=== PATIENT | female | born 1975 | race Caucasian/White ===

== ENCOUNTER 2016-03-19 08:56 | Emergency (ER) ==
[2016-03-19 09:08] VITALS: BP 118/73; TEMP 98.6; BMI 27.0
[2016-03-19] MEDS ORDERED: NORCO 10-325 PO STA (09:28)
[2016-03-19 10:15] LABS: BILIRUBIN,URINE Negative (NEGATIVE); KETONES,URINE Negative (NEGATIVE); LEUKOCYTE ESTERASE ,URINE Trace (NEGATIVE); NITRITE,URINE Negative (NEGATIVE); PROTEIN,URINE Negative (NEGATIVE); URINE, BLOOD Negative (NEGATIVE)
--- NOTE | 2016-03-19 10:15 | ED.PDOC ---
General ED Provider: Dr. TOR MINA Chief Complaint: Back Pain Stated Complaint: low back pain Time Seen by Physician: 09:00 (no history of back pain negative trauma ) Mode of Arrival: Walk-In Information Source: Patient Exam Limitations: No limitations Primary Care Provider: RADHA DIMAS Nursing and Triage Documentation Reviewed and Agree: Yes Musculoskeletal Complaint Exam - Back Pain Complaint/Exam Mechanism of Injury: Reports: No known trauma Onset/Duration: 1 day Symptoms Are: Still present Timing: Constant Episodes Lasting: Hours Initial Severity: Moderate Current Severity: Moderate Character: Reports: Throbbing, Spasmodic, Stiffness Aggravating: Reports: Movements, Lifting Alleviating: Reports: Rest, Position Associated Signs and Symptoms: Reports: Flank pain. Denies: Swelling, Redness, Bruising, Fever, Weakness, Numbness, Tingling, Abdominal pain, Bladder incontinence, Bowel incontinence, Weight loss, Pain with weight bearing TAD Risk Factors: Reports: None AAA Risk Factors: Reports: None Cauda Equina Risk Factors: Reports: None Epidural Abcess Risk Factors: Reports: None Related Surgical History: Reports: None Focal Tenderness: No Paraspinal Muscle Tenderness: No Paraspinal Muscle Spasm: No Scoliosis: No Lordosis: No Kyphosis: No SLR Test: Right Negative, Left Negative Hip Motion Testing Pain: Right Negative, Left Negative Focal Weakness: Present: None Focal Sensory Loss: Present: None Gait: Present: Normal Differential Diagnoses: Renal Colic, Strain, Sprain Review of Systems - Review Of Systems Constitutional: Reports: No symptoms Eyes: Reports: No symptoms Ears, Nose, Mouth, Throat: Reports: No symptoms Respiratory: Reports: No symptoms Cardiac: Reports: No symptoms GI: Reports: No symptoms : Reports: Dysuria Musculoskeletal: Reports: Back pain Skin: Reports: No symptoms Neurological: Reports: No symptoms Endocrine: Reports: No symptoms Hematologic/Lymphatic: Reports: No symptoms All Other Systems: Reviewed and Negative Past Medical History - Past Medical History Previously Healthy: Yes Endocrine: Reports: None Cardiovascular: Reports: None Respiratory: Reports: None Hematological: Reports: None Gastrointestinal: Reports: None Genitourinary: Reports: None Neuro/Psych: Reports: None Musculoskeletal: Reports: None Cancer: Reports: None Last Menstrual Period: 3 weeks - Surgical History General Surgical History: Reports: None - Family History Family History: Reports: None - Social History Smoking Status: Current every day smoker, Light tobacco smoker Hx Substance Use: No Alcohol Screening: None Physical Exam - Physical Exam Appearance: Well-appearing, No pain distress, Well-nourished Eyes: ESTELITA, EOMI, Conjunctiva clear ENT: Ears normal, Nose normal, Oropharynx normal Respiratory: Airway patent, Breath sounds clear, Breath sounds equal, Respirations nonlabored Cardiovascular: RRR, Pulses normal, No rub, No murmur GI/: Soft, Nontender, No masses, Bowel sounds normal, No Organomegaly Musculoskeletal: Normal strength, ROM intact, No edema, No calf tenderness Skin: Warm, Dry, Normal color Neurological: Sensation intact, Motor intact, Reflexes intact, Cranial nerves intact, Alert, Oriented Psychiatric: Affect appropriate, Mood appropriate Interpretation - Radiology Interpretation Radiology Interpretation By: Radiologist Radiology Results: No acute changes Critical Care Note - Critical Care Note Total Time (mins): 0 Course - Course Orders, Labs, Meds: Lab Review 03/19/16 09:31 Urine Color Yellow Urine Clarity Clear Urine pH 7.0 Ur Specific Vida 1.015 Urine Protein Negative Urine Glucose (UA) Negative Urine Ketones Negative Urine Blood Negative Urine Nitrite Negative Urine Bilirubin Negative Urine Urobilinogen 0.2 Ur Leukocyte Esterase Trace Urine Microscopic RBC 0-2 Urine Microscopic WBC 2-5 Ur Squamous Epith Cells 2-5 Urine Bacteria 1+ Orders Category Date Time Status URINALYSIS C & S IF INDICATED Stat LAB 03/19/16 09:31 Completed URINE CULTURE Stat LAB 03/19/16 10:16 Received Hydrocodone Bit/Acetaminophen [[place] 10-325] MEDS 03/19/16 09:28 Discontinued 1 tab PO ONCE STA CT ABD/PEL WO RENAL STONE PROT Stat RADS 03/19/16 09:[address] LUMBAR SPINE W/O CONTRAST Stat RADS 03/19/16 09:28 Taken Medications Discontinued Medications Generic Name Dose Route Start Last Admin Trade Name Freq PRN Reason Stop Dose Admin Acetaminophen/Hydrocodone Bitart 1 tab 03/19/16 09:28 03/19/16 09:46 [place] 10-325 PO 03/19/16 09:29 1 tab ONCE STA Administration Vital Signs: Temp Pulse Resp BP Pulse Ox 03/19/16 08:57 98.6 F 72 18 118/73 98 Departure - Departure Time of Disposition: 11:00 (DISCUSSED UA RESULTS WILL NOT TREAT AT THIS TIME PT AWARE OF INSTRUCTION) Disposition: HOME SELF-CARE Discharge Problem: Backache Instructions: Acute Low Back Pain (ED), Urinary Tract Infection in Women (ED) Condition: Good Pt referred to PMD for follow-up: No Additional Instructions: Please call your Family Physician as soon as possible to schedule a follow-up appointment. Prescriptions: Hydrocodone/Acetaminophen [[place] 5-325 Tablet] 1 each PO Q6HR PRN #7 tablet PRN Reason: PAIN Allergies/Adverse Reactions: Allergies No Known Allergies Allergy (Unverified 03/19/16 09:08) Home Medications: Ambulatory Orders Citalopram Hydrobromide [Celexa] 20 mg PO BEDTIME 03/19/16 Hydrocodone/Acetaminophen [[place] 5-325 Tablet] 1 each PO Q6HR PRN #7 tablet 11/23
[2016-03-19 10:17] LABS: ADD URINE MICROSCOPIC YES; BACTERIA,URINE 1+ (NOT PRESENT)
--- NOTE | 2016-03-19 10:43 | CT ---
EXAM: CT lumbar spine without contrast. HISTORY: Back pain. COMPARISON: None available. TECHNIQUE: Multiple axial images of the lumbar spine were obtained without intravenous contrast. I mages were reformatted in the sagittal and coronal planes. FINDINGS: The normal curvature and alignment are maintained save for mild left convex curvature lauryn tered near L2-3. There is partial sacralization of L5 on the right with small ribs present at T12. Vertebral body and intervertebral disc heights are normal. No fracture or subluxation is seen. No significant central canal stenosis identified. Adjacent soft tissues are unremarkable. IMPRESSION: No acute abnormality of the lumbar spine.
--- NOTE | 2016-03-19 10:44 | CT ---
EXAM: CT abdomen pelvis without contrast HISTORY: Bilateral flank pain and lower back pain for 3 days. No history of injury COMPARISON: CT lumbar spine same day and CT abdomen pelvis 11/05/2009 TECHNIQUE: Serial axial images of the abdomen pelvis were performed from the lung bases through the inferior pelvis without contrast. These were viewed in multiple planes. FINDINGS: The lung bases are clear. Evaluation of the liver and the intra-abdominal organs is limited due to lack of contrast. The live r is unremarkable. The gallbladder is normal. The adrenal glands are unremarkable. The spleen is normal. Pancreas is normal. The kidneys are unremarkable with no visualized stone, hydronephrosis or hydroureter. The stomach is unremarkable. The small bowel in the abdomen and pelvis is normal. There is a fat-containing umbilical hernia. T he appendix is normal. The colon is unremarkable. The uterus and ovaries are unremarkable. Urinar y bladder is normal. There is no free air, free fluid or lymphadenopathy. The osseous structures a re unremarkable. There is no acute compression fracture or subluxation. IMPRESSION: No acute intra-abdominal or pelvic process to account for patient's symptoms. No hydronephrosis, hydroureter or stone is identified.
== END 2016-03-19 11:03 | disposition home or self-care (01) ==
LOC: ED 08:56
DX: M54.5 Low back pain (principal); N39.0 Urinary tract infection, site not specified; F17.210 Nicotine dependence, cigarettes, uncomplicated
CPT/HCPCS: 74176; 81001; 87086; 99283

== ENCOUNTER 2017-08-18 12:07 | Outpatient (CLI) | payer OTHER ==
--- NOTE | 2017-08-18 14:31 | MRI ---
EXAM: MRI cervical spine without IV contrast. DATE: 08/18/2017. HISTORY: Neck pain. TECHNIQUE: Sagittal and axial T1W and T2W sequences of the cervical spine along with sagittal IR and coronal T2W sequences were obtained using 1.2 Tika magnet. No IV contrast. COMPARISON: MRI C-spine 08/13/2013. FINDINGS: Minor rightward curvature of the cervical spine is present vs patient's head canted to the left. No acute c-spine fracture, subluxation, osseous malignancy, or jumped facet is apparent. Min or anterior wedge appearance of the C5 and C6 vertebral bodies appear chronic. Minor C4-5, mild C5-6 , and minor C6-7 disc space narrowing is detected. Bone marrow signal is overall normal. Cervical sp inal cord is mildly flattened anteriorly at C5-6 and C6-7. No syrinx, cord edema, myelomalacia, or n eoplasm is identified. Visible brainstem is normal. There is no Chiari 1 malformation. Pituitary gland is somewhat small i n size, with CSF filling part the pituitary fossa. No mastoid disease detected. No thyroid, submand ibular, or parotid gland neoplasm is apparent. Trachea, larynx, epiglottis are unremarkable. No rony picious neck mass, cervical lymphadenopathy, apical lung mass, pneumonia, or pleural effusion is demo nstrated. Several artifacts are visible at the left lung apex on the coronal sequence. Segmental analysis: C2-3: Normal. C3-4: Normal. C4-5: Minimal posterior disc bulge (1 mm AP) does not contact the cord. Canal is 11.7 mm AP. Each foramen is patent. C5-6: Broad posterior disc/osteophyte complex (2.6 mm AP) flattens the cord anteriorly. Canal is 9. 1 mm AP. Minor right and mild left foraminal stenoses are due to uncinate hypertrophy. C6-7: Broad posterior disc/osteophyte complex (2.7 mm AP) flattens the cord anteriorly. Canal is 7. 8 mm AP. Minor left foraminal narrowing is due to uncinate hypertrophy. C7-T1: Normal. T1-2: Normal. IMPRESSIONS: 1. C-spine mild uncinate hypertrophy and DDD - - similar to August 2013. 2. Mild central stenosis at C5-6. Moderate central stenosis at C6-7. 3. Moderate/mild foraminal stenoses at C5-6 and C6-7. 4. Small pituitary gland. No pituitary lesion.
== END 2017-08-18 12:08 | disposition home or self-care (01) ==
LOC: RAD 12:07
PROVIDERS: ATTEND Family Medicine
DX: M54.2 Cervicalgia (principal); M54.12 Radiculopathy, cervical region

== ENCOUNTER 2018-03-31 15:23 | Outpatient (CLI) | payer OTHER ==
--- NOTE | 2018-03-31 16:10 | DI ---
EXAM: LEFT KNEE. HISTORY: Acute knee pain FINDINGS: Left knee four view. Articular cartilage width is normal. There is no fracture or joint effusion. Bone density and soft tissues are within normal limits. IMPRESSION: Within normal limits.
--- NOTE | 2018-03-31 16:10 | DI ---
EXAM: RIGHT KNEE. HISTORY: Acute knee pain. FINDINGS: Right knee four view. Articular cartilage width is normal. There is no fracture or joint effusion. Bone density and soft tissues are within normal limits. IMPRESSION: Within normal limits.
== END 2018-03-31 15:24 | disposition home or self-care (01) ==
LOC: RAD 15:23
PROVIDERS: ATTEND Family Medicine
DX: M25.561 Pain in right knee (principal); M25.562 Pain in left knee